=== PATIENT | female | born 1950 ===

== ENCOUNTER 2021-12-21 11:30 | Inpatient (IN) | payer OTHER ==
[~2021-12-21] VITALS: Ht 157.5 cm; Wt 67.1 kg
[2022-01-11] MEDS ORDERED: IBU800 MG PO (07:21)
[2022-01-11] MEDS ORDERED: HORIZANT300 MG PO (07:22)
[2022-01-11] MEDS ORDERED: CIPRO500 MG PO (07:23)
[2022-01-11] MEDS ORDERED: GABAPENTIN300 M2 (07:24)
== END 2022-01-11 11:33 | disposition home or self-care (01) | DRG 743 ==
LOC: SURG 12-27 11:30 → O/R 01-10 07:42 → SURG 01-10 11:30 → OB/GYN 01-10 13:49 → SURG 01-10 17:15 → OB/GYN 01-11 11:33
PROVIDERS: ADMIT Obstetrics & Gynecology Gynecology; ATTEND Obstetrics & Gynecology Gynecology
PROC: 0JQC0ZZ Repair Pelvic Region Subcutaneous Tissue and Fascia, Open Approach (ICD-10-PCS; 2022-01-10)
PROC: 0USG0ZZ Reposition Vagina, Open Approach (ICD-10-PCS; 2022-01-10)
PROC: 0UT97ZZ Resection of Uterus, Via Natural or Artificial Opening (ICD-10-PCS; principal; 2022-01-10 17:15)
DX: D25.1 Intramural leiomyoma of uterus (principal); N81.2 Incomplete uterovaginal prolapse; N84.0 Polyp of corpus uteri; N72 Inflammatory disease of cervix uteri; Z20.822 Contact with and (suspected) exposure to COVID-19